=== PATIENT | female | born 1965 | race Caucasian/White ===

== ENCOUNTER 2018-01-12 00:55 | Outpatient (CLI) | payer BC ==
[~2018-01-12 00:55] MED LIST: ASPI81TA52 PO; ATOR-2 PO; CLOP75TA33 PO; ESTR0.5T28 PO; FOLI1TAB16 PO; HYDR10TA14 PO; ISOS30TA6 PO; LEVO200T46 PO; LISI2.5T49 PO; MELA3TAB PO; PHEN100C12 PO; PRO2.5T PO; SERT25TA PO
== END 2018-01-12 23:59 | disposition home or self-care (01) ==
LOC: DIABETIC 00:55
PROVIDERS: ATTEND Specialist
DX: E11.65 Type 2 diabetes mellitus with hyperglycemia (principal)
CPT/HCPCS: G0108

== ENCOUNTER 2019-04-28 08:09 | Outpatient (CLI) | payer BC ==
[2019-04-28] VITALS (7 sets, daily range): BP systolic 111–144; BP diastolic 6–70
[~2019-04-28] VITALS: Ht 165.1 cm; Wt 103.6 kg
[~2019-04-28 08:09] MED LIST changes: +HYDR-3780 PO; -HYDR10TA14 PO
[2019-04-28] MEDS ORDERED: nitroGLYCERIN 0.4mg SUBLingual tab SL PRN (09:15)
[2019-04-28] MEDS ORDERED: normal saline 500ml IV soln 500 ML IV ONE (09:15)
[2019-04-28] MEDS ORDERED: aminophylline 250mg/10ml inj. IV PRN (09:15)
[2019-04-28] MEDS ORDERED: regadenoson 0.4mg/5ml syringe IV ONE ×2 (09:15→10:28)
[2019-04-28] MEDS ORDERED: metoprolol tartrate 1mg/ml inj IV PRN (09:15)
[2019-04-28] MEDS ORDERED: aminophylline inj. 10 ML IV ONE (10:28)
== END 2019-04-28 23:59 | disposition home or self-care (01) ==
LOC: RAD 08:09 → EDSTATUS 10:00 → RAD 23:59
PROVIDERS: ATTEND Internal Medicine Cardiovascular Disease
DX: R07.9 Chest pain, unspecified (principal); I10 Essential (primary) hypertension
CPT/HCPCS: 78452; 93017; A9500; J0280; J7030

== ENCOUNTER 2020-01-12 00:21 | Emergency (ER) | payer BC ==
[~2020-01-12] VITALS: Ht 162.6 cm; Wt 110.0 kg
[~2020-01-12 00:21] MED LIST changes: -MELA3TAB PO; +MELA3TAB64 PO
[2020-01-12] MEDS ORDERED: phenytoin sod ER 100mg capsule PO ONE ×2 (01:25→02:50)
[2020-01-12] MEDS ORDERED: LORazepam 1 MG tablet PO ONE (01:25)
[2020-01-12 01:31] VITALS: BP 126/74
[2020-01-12] MEDS ORDERED: naproxen 500mg tablet PO ONE (02:00)
[2020-01-12 02:01] LABS: ALANINE AMINOTRANSFERASE 27 U/L (12-78); ALBUMIN 3.6 G/DL (3.4-5.0); ALBUMIN/GLOBULIN RATIO 1.3 (1.1-1.5); ALKALINE PHOSPHATASE 49 IU/L (46-116); ANION GAP 8 (8-16); ASPARTATE AMINO TRANSFERASE 48 U/L (10-37); BILIRUBIN,TOTAL 0.4 MG/DL (0.1-1.0); BLOOD UREA NITROGEN 14 MG/DL (7-18); BUN/CREATININE RATIO 14.4 (6.6-38.0); CALCIUM 8.8 MG/DL (8.5-10.1); CHLORIDE 108 MMOL/L (99-107); CREATININE 0.97 MG/DL (0.40-0.90); GLUCOSE 127 MG/DL (70-104); PHENYTOIN (DILANTIN) 4.9 UG/ML (10.0-20.0); POTASSIUM 3.4 MMOL/L (3.5-5.1); SODIUM 141 MMOL/L (135-145); TOTAL CARBON DIOXIDE 24.6 MMOL/L (24-32); TOTAL PROTEIN 6.4 G/DL (6.4-8.2); eGFR 60 ML/MIN
--- NOTE | 2020-01-12 02:11 | NUR ---
pt reports continued headache . dr. daniel updated and naproxyn 500 mg tab ordered.
[2020-01-12 02:21] LABS: BASOPHILS # (AUTO) 0.1 X10'3 (0-0.2); BASOPHILS % (AUTO) 1.4 % (0-1); EOSINOPHILS # (AUTO) 0.1 X10'3 (0-0.9); EOSINOPHILS % (AUTO) 3.2 % (0-6); HEMOGLOBIN 12.3 g/dl (12.0-16.0); LYMPHOCYTES # (AUTO) 1.6 X10'3 (1.1-4.8); LYMPHOCYTES % (AUTO) 46.1 % (21-51); MEAN CORPUSCULAR HEMOGLOBIN 31.4 PG (27.0-31.0); MEAN CORPUSCULAR HGB CONC 35.2 g/dL (33.0-36.5); MEAN CORPUSCULAR VOLUME 89.2 FL (78-98); MEAN PLATELET VOLUME 6.7 FL (7.4-10.4); MONOCYTES # (AUTO) 0.2 X10'3 (0-0.9); MONOCYTES % (AUTO) 5.1 % (2-12); NEUTROPHILS # (AUTO) 1.6 X10'3 (1.8-7.7); NEUTROPHILS % (AUTO) 44.2 % (42-75); PLATELET COUNT 236 X10'3 (140-440); RED BLOOD COUNT 3.92 X10'6 (4.20-5.60); RED CELL DISTRIBUTION WIDTH 13.1 % (11.5-14.5); WHITE BLOOD COUNT 3.6 X10'3 (4.5-11.0)
== END 2020-01-12 03:40 | disposition home or self-care (01) ==
LOC: ER 00:21
DX: S00.532A Contusion of oral cavity, initial encounter (principal); R56.9 Unspecified convulsions; I25.10 Atherosclerotic heart disease of native coronary artery without angina pectoris; E78.00 Pure hypercholesterolemia, unspecified; I10 Essential (primary) hypertension; I25.2 Old myocardial infarction; E11.9 Type 2 diabetes mellitus without complications; Z95.5 Presence of coronary angioplasty implant and graft; Z98.890 Other specified postprocedural states; Z90.49 Acquired absence of other specified parts of digestive tract; Z88.8 Allergy status to other drugs, medicaments and biological substances; Z79.82 Long term (current) use of aspirin; Z79.899 Other long term (current) drug therapy; X58.XXXA Exposure to other specified factors, initial encounter; Y93.89 Activity, other specified; Y92.89 Other specified places as the place of occurrence of the external cause; Y99.9 Unspecified external cause status
CPT/HCPCS: 36415; 80053; 80185; 85025; 99284

== ENCOUNTER 2020-10-30 09:07 | Emergency (ER) | payer BC ==
[~2020-10-30] VITALS: Ht 165.1 cm; Wt 109.1 kg
[~2020-10-30 09:07] MED LIST changes: -HYDR-3780 PO; +HYDR-4318 PO; +MELA3TAB39 PO; -MELA3TAB64 PO
== END 2020-10-30 09:55 | disposition home or self-care (01) ==
LOC: ER 09:08
DX: J06.9 Acute upper respiratory infection, unspecified (principal); R05 Cough; Z20.828 Contact with and (suspected) exposure to other viral communicable diseases; I25.10 Atherosclerotic heart disease of native coronary artery without angina pectoris; E78.00 Pure hypercholesterolemia, unspecified; I10 Essential (primary) hypertension; I25.2 Old myocardial infarction; E11.9 Type 2 diabetes mellitus without complications; Z86.69 Personal history of other diseases of the nervous system and sense organs; Z90.49 Acquired absence of other specified parts of digestive tract; Z98.890 Other specified postprocedural states; Z88.8 Allergy status to other drugs, medicaments and biological substances; Z79.82 Long term (current) use of aspirin; Z79.899 Other long term (current) drug therapy
CPT/HCPCS: 36415; 87635; 99283

== ENCOUNTER 2020-11-28 16:34 | Inpatient (IN) | payer BC ==
[~2020-11-28] VITALS: Ht 165.1 cm; Wt 118.2 kg
[2020-11-28 19:25] LABS: BASOPHILS % (AUTO) 0.8 % (0-1); EOSINOPHILS # (AUTO) 0.2 X10'3 (0-0.9); EOSINOPHILS % (AUTO) 3.7 % (0-6); HEMATOCRIT 33.6 % (35.0-45.0); HEMOGLOBIN 11.8 g/dl (12.0-16.0); LYMPHOCYTES # (AUTO) 3.3 X10'3 (1.1-4.8); LYMPHOCYTES % (AUTO) 56.7 % (21-51); MEAN CORPUSCULAR HEMOGLOBIN 31.8 PG (27.0-31.0); MEAN CORPUSCULAR HGB CONC 35.1 g/dL (33.0-36.5); MEAN CORPUSCULAR VOLUME 90.7 FL (78-98); MEAN PLATELET VOLUME 6.5 FL (7.4-10.4); MONOCYTES # (AUTO) 0.3 X10'3 (0-0.9); MONOCYTES % (AUTO) 5.7 % (2-12); NEUTROPHILS # (AUTO) 1.9 X10'3 (1.8-7.7); NEUTROPHILS % (AUTO) 33.1 % (42-75); PLATELET COUNT 298 X10'3 (140-440); RED BLOOD COUNT 3.71 X10'6 (4.20-5.60); RED CELL DISTRIBUTION WIDTH 14.2 % (11.5-14.5); WHITE BLOOD COUNT 5.8 X10'3 (4.5-11.0)
[2020-11-28 19:35] LABS: PARTIAL THROMBOPLASTIN TIME 27 SECONDS (22-32)
[2020-11-28 19:43] LABS: ALANINE AMINOTRANSFERASE 22 U/L (12-78); ALBUMIN 4.4 G/DL (3.4-5.0); ALBUMIN/GLOBULIN RATIO 1.3 (1.1-1.5); ALKALINE PHOSPHATASE 25 IU/L (46-116); ANION GAP 8 (8-16); ASPARTATE AMINO TRANSFERASE 57 U/L (10-37); BILIRUBIN,TOTAL 0.3 MG/DL (0.1-1.0); BLOOD UREA NITROGEN 14 MG/DL (7-18); BUN/CREATININE RATIO 8.6 (6.6-38.0); CALCIUM 8.8 MG/DL (8.5-10.1); CHLORIDE 104 MMOL/L (99-107); CREATININE 1.62 MG/DL (0.40-0.90); GLUCOSE 129 MG/DL (70-104); MAGNESIUM 1.8 MG/DL (1.5-2.4); SODIUM 142 MMOL/L (135-145); TOTAL PROTEIN 7.8 G/DL (6.4-8.2); eGFR 33 ML/MIN
[2020-11-28 19:50] LABS: POTASSIUM 2.9 MMOL/L (3.5-5.1)
[2020-11-28 19:52] LABS: PLATELET ESTIMATE NORMAL; TOTAL CELLS COUNTED 100
[2020-11-28] MEDS ORDERED: potassium Cl 10 mEq/100mL bag IV ONE ×2 (20:00→20:30)
[2020-11-28] MEDS ORDERED: normal saline 1000ML IV soln IVB ONE (20:10)
[2020-11-28] MEDS ORDERED: potassium Cl 20 mEq SR tablet PO ONE (20:10)
[2020-11-28] MEDS ORDERED: magnesium oxide 400mg tablet PO ONE (20:10)
[2020-11-28 20:21] LABS: CLARITY,URINE CLEAR (Clear); COLOR,URINE YELLOW (Yellow); GLUCOSE, URINE NEGATIVE (Neg); KETONES,URINE TRACE mg/dl (Neg); LEUKOCYTE ESTERASE ,URINE NEGATIVE (Neg); NITRITES, URINE NEGATIVE (Neg); OCCULT BLOOD,URINE NEGATIVE (Neg); PH,URINE 5.5 (4.8-8.0); PROTEIN,URINE TRACE mg/dl (Neg)
[2020-11-28 20:22] LABS: UA COLLECTION TYPE CLN CATCH MIDSTREAM
[2020-11-28] MEDS ORDERED: potassium 10mEq/100ml NS w/LIDOcaine (10mg/bag) IV ONE (20:25)
[2020-11-28 20:26] LABS: BACTERIA,URINE NONE SEEN /HPF (Neg); RBC,URINE NONE SEEN /HPF (0-2); SQUAMOUS EPITHELIAL CELL,UR FEW /LPF (FEW); WBC,URINE 0-4 /HPF (0-4)
[2020-11-28] MEDS ORDERED: magnesium hydroxide 30ml (MOM) UD suspension PO PRN (20:55)
[2020-11-28] MEDS ORDERED: potassium Cl 40MEQ/1/2NS 520ml 520 ML IV PRN ×2 (20:55)
[2020-11-28] MEDS ORDERED: mag hydrox/Alum hydrox/simeth 30ml oral suspension PO PRN (20:55)
[2020-11-28] MEDS ORDERED: acetaminophen 325mg tablet PO PRN ×2 (20:55)
[2020-11-28] MEDS ORDERED: magnesium Cl slow-release 64mg tablet PO PRN (20:55)
[2020-11-28] MEDS ORDERED: magnesium 2GM in 50ml NS 50 ML IV PRN (20:55)
[2020-11-28] MEDS ORDERED: magnesium 4gm in 100ml NS 100 ML IV PRN (20:55)
[2020-11-28] MEDS ORDERED: HYDROcodone/acetaminophen 5mg/325mg tablet PO PRN (20:55)
[2020-11-28] MEDS ORDERED: potassium Cl 20 mEq SR tablet PO PRN (20:55)
[2020-11-28] MEDS ORDERED: morphine 2 MG/ML inj. syringe IV PRN ×2 (20:55)
[2020-11-28] MEDS ORDERED: HYDROcodone/acetaminophen 10/325mg tab PO PRN (20:55)
[2020-11-28] MEDS ORDERED: ondansetron/PF 4mg/2ml inj IV PRN (20:55)
[2020-11-28] MEDS ORDERED: Melatonin 3mg tablet PO SCH (21:00)
[2020-11-28] MEDS: normal saline 1000ml 1,000 ML IV SCH (21:31)
--- NOTE | 2020-11-29 00:32 | NUR ---
PT HAS ADMISSION ORDERS. AWAITING IPA.
[2020-11-29 03:30] VITALS: BP 138/57
[2020-11-29] MEDS: normal saline 1000ml 1,000 ML IV SCH ×2 (05:35→16:55)
--- NOTE | 2020-11-29 06:26 | NUR ---
Problems reprioritized. Patient report given, questions answered & plan of care reviewed with Manuela LÓPEZ.
--- NOTE | 2020-11-29 06:52 | NUR ---
Patient in room [id number]. I have received report from Brynn LÓPEZ and had the opportunity to ask questions and assume patient care.
[2020-11-29 07:00] VITALS: BP 129/78
[2020-11-29 07:50] LABS: BASOPHILS % (AUTO) 0.6 % (0-1); EOSINOPHILS # (AUTO) 0.2 X10'3 (0-0.9); EOSINOPHILS % (AUTO) 3.7 % (0-6); HEMATOCRIT 30.2 % (35.0-45.0); HEMOGLOBIN 10.8 g/dl (12.0-16.0); LYMPHOCYTES # (AUTO) 2.9 X10'3 (1.1-4.8); MEAN CORPUSCULAR HEMOGLOBIN 32.6 PG (27.0-31.0); MEAN CORPUSCULAR HGB CONC 35.6 g/dL (33.0-36.5); MEAN CORPUSCULAR VOLUME 91.4 FL (78-98); MEAN PLATELET VOLUME 6.4 FL (7.4-10.4); MONOCYTES # (AUTO) 0.4 X10'3 (0-0.9); MONOCYTES % (AUTO) 7.5 % (2-12); NEUTROPHILS # (AUTO) 1.8 X10'3 (1.8-7.7); NEUTROPHILS % (AUTO) 34.2 % (42-75); PLATELET COUNT 239 X10'3 (140-440); RED BLOOD COUNT 3.31 X10'6 (4.20-5.60); WHITE BLOOD COUNT 5.4 X10'3 (4.5-11.0)
[2020-11-29] MEDS ORDERED: medroxyprogesterone acet. 2.5mg tablet PO SCH (08:00)
[2020-11-29] MEDS ORDERED: phenytoin sod ER 100mg capsule PO SCH (08:00)
[2020-11-29] MEDS ORDERED: hydrocortisone 10mg tablet PO SCH (08:00)
[2020-11-29] MEDS ORDERED: atorvastatin 20mg tablet PO SCH (08:00)
[2020-11-29] MEDS ORDERED: aspirin 81mg tablet.DR PO SCH (08:00)
[2020-11-29] MEDS ORDERED: levoTHYROXINE 100mcg tablet PO SCH (08:00)
[2020-11-29] MEDS ORDERED: isosorbide mononitrate 30mg tab.SR.24H PO SCH (08:00)
[2020-11-29] MEDS ORDERED: sertraline 50mg tablet PO SCH (08:00)
[2020-11-29] MEDS ORDERED: clopidogrel 75mg tablet PO SCH (08:00)
[2020-11-29] MEDS ORDERED: K and/or MAG REPLACEMENT MC SCH (08:00)
[2020-11-29] MEDS ORDERED: lisinopril 2.5mg tablet PO SCH (08:00)
[2020-11-29] MEDS ORDERED: folic acid 1mg tablet PO SCH (08:00)
[2020-11-29 08:02] LABS: ALBUMIN 3.9 G/DL (3.4-5.0); ANION GAP 9 (8-16); BLOOD UREA NITROGEN 13 MG/DL (7-18); BUN/CREATININE RATIO 9.5 (6.6-38.0); CALCIUM 8.3 MG/DL (8.5-10.1); CHLORIDE 107 MMOL/L (99-107); CREATININE 1.37 MG/DL (0.40-0.90); GLUCOSE 81 MG/DL (70-104); MAGNESIUM 1.9 MG/DL (1.5-2.4); POTASSIUM 3.3 MMOL/L (3.5-5.1); SODIUM 145 MMOL/L (135-145); TOTAL CARBON DIOXIDE 29.2 MMOL/L (24-32); eGFR 40 ML/MIN
[2020-11-29 08:43] LABS: PLATELET ESTIMATE NORMAL; TOTAL CELLS COUNTED 100
[2020-11-29] MEDS ORDERED: pneumococcal 23-VAL P-sac vacc 25 mcg/0.5ml vial IMVAC ONE (09:15)
[2020-11-29] MEDS: potassium Cl 20 mEq SR tablet PO PRN ×2 (10:41→14:44)
[2020-11-29 12:00] VITALS: BP 118/79
--- NOTE | 2020-11-29 15:59 | NUR ---
PAGER ID: [phone] MESSAGE: RE: [id number], Tanya Posey- Pt was thinking she was being d/c'd home this afternoon and wanted me to check with you. Thank you, [facility] [phone]
[2020-11-29] MEDS ORDERED: CEPH500C5 PO (17:07)
--- NOTE | 2020-11-29 18:15 | NUR ---
Pt stable and appropriate for d/c. PIV d/c'd cannula intact. Reviewed with pt all d/c instructions and meds with pt given opportunity to ask questions, answers provided and pt verbalizing understanding. Prescriptions escripted to pharmacy of choice. Pt to call PCP with any questions/concerns or s/sx of complications or return to the nearest ED. Escorted to front lobby by staff member via w/c with all personal belongings. D/c'd home in private vehicle driven by family member.
== END 2020-11-29 18:15 | disposition home or self-care (01) | DRG 684 ==
LOC: ER 16:35 → ED HOLD 20:51 → SUR 3N 11-29 03:12
PROVIDERS: ADMIT Internal Medicine; ATTEND Internal Medicine
PROC: 3E0234Z Introduction of Serum, Toxoid and Vaccine into Muscle, Percutaneous Approach (ICD-10-PCS; principal; 2020-11-29)
DX: N17.9 Acute kidney failure, unspecified (principal); E11.9 Type 2 diabetes mellitus without complications; E78.00 Pure hypercholesterolemia, unspecified; E78.5 Hyperlipidemia, unspecified; E87.6 Hypokalemia; I10 Essential (primary) hypertension; F32.9 Major depressive disorder, single episode, unspecified; I25.10 Atherosclerotic heart disease of native coronary artery without angina pectoris; I25.2 Old myocardial infarction; Z79.890 Hormone replacement therapy; Z95.1 Presence of aortocoronary bypass graft; Z79.899 Other long term (current) drug therapy; Z23 Encounter for immunization
CPT/HCPCS: 36415; 80048; 80053; 81001; 83735; 83880; 84100; 84484; 85007; 85025; 85610; 85730; 87081; 90732; 93005; 99285; G0378; J3480; J7030

== ENCOUNTER 2020-12-10 12:34 | Emergency (ER) | payer BC ==
[~2020-12-10] VITALS: Ht 165.1 cm; Wt 110.6 kg
[~2020-12-10 12:34] MED LIST changes: +CEPH500C5 PO
[2020-12-10 12:44] VITALS: BP 110/86
[2020-12-10 13:41] LABS: BASOPHILS # (AUTO) 0.1 X10'3 (0-0.2); BASOPHILS % (AUTO) 1.2 % (0-1); EOSINOPHILS # (AUTO) 0.1 X10'3 (0-0.9); EOSINOPHILS % (AUTO) 2.9 % (0-6); HEMOGLOBIN 11.5 g/dl (12.0-16.0); LYMPHOCYTES # (AUTO) 1.9 X10'3 (1.1-4.8); LYMPHOCYTES % (AUTO) 41.9 % (21-51); MEAN CORPUSCULAR HEMOGLOBIN 31.9 PG (27.0-31.0); MEAN CORPUSCULAR HGB CONC 34.7 g/dL (33.0-36.5); MEAN CORPUSCULAR VOLUME 91.9 FL (78-98); MEAN PLATELET VOLUME 6.3 FL (7.4-10.4); MONOCYTES # (AUTO) 0.3 X10'3 (0-0.9); MONOCYTES % (AUTO) 5.5 % (2-12); NEUTROPHILS # (AUTO) 2.2 X10'3 (1.8-7.7); NEUTROPHILS % (AUTO) 48.5 % (42-75); PLATELET COUNT 329 X10'3 (140-440); RED BLOOD COUNT 3.59 X10'6 (4.20-5.60); RED CELL DISTRIBUTION WIDTH 14.7 % (11.5-14.5); WHITE BLOOD COUNT 4.6 X10'3 (4.5-11.0)
[2020-12-10 13:53] LABS: ALANINE AMINOTRANSFERASE 25 U/L (12-78); ALBUMIN 4.7 G/DL (3.4-5.0); ALBUMIN/GLOBULIN RATIO 1.5 (1.1-1.5); ALKALINE PHOSPHATASE 19 IU/L (46-116); ANION GAP 3 (8-16); ASPARTATE AMINO TRANSFERASE 78 U/L (10-37); BILIRUBIN,TOTAL 0.3 MG/DL (0.1-1.0); BLOOD UREA NITROGEN 26 MG/DL (7-18); BUN/CREATININE RATIO 18.1 (6.6-38.0); CHLORIDE 100 MMOL/L (99-107); CREATININE 1.44 MG/DL (0.40-0.90); GLUCOSE 95 MG/DL (70-104); POTASSIUM 3.8 MMOL/L (3.5-5.1); SODIUM 133 MMOL/L (135-145); TOTAL CARBON DIOXIDE 30.3 MMOL/L (24-32); TOTAL PROTEIN 7.9 G/DL (6.4-8.2); eGFR 38 ML/MIN
== END 2020-12-10 15:37 | disposition home or self-care (01) ==
LOC: ER 12:35
DX: R53.1 Weakness (principal); Z20.828 Contact with and (suspected) exposure to other viral communicable diseases; R22.0 Localized swelling, mass and lump, head; I25.810 Atherosclerosis of coronary artery bypass graft(s) without angina pectoris; I25.10 Atherosclerotic heart disease of native coronary artery without angina pectoris; E78.00 Pure hypercholesterolemia, unspecified; I10 Essential (primary) hypertension; E11.9 Type 2 diabetes mellitus without complications; Z86.61 Personal history of infections of the central nervous system; Z98.890 Other specified postprocedural states; Z90.49 Acquired absence of other specified parts of digestive tract; Z98.61 Coronary angioplasty status; Z88.8 Allergy status to other drugs, medicaments and biological substances; Z79.82 Long term (current) use of aspirin; Z79.2 Long term (current) use of antibiotics; Z79.899 Other long term (current) drug therapy
CPT/HCPCS: 36415; 71045; 80053; 83880; 84484; 85025; 87635; 93005; 99285

== ENCOUNTER 2021-08-23 14:31 | Emergency (ER) | payer BC ==
[~2021-08-23] VITALS: Ht 165.1 cm; Wt 111.4 kg
[~2021-08-23 14:31] MED LIST changes: +CEPH-585 PO; -CEPH500C5 PO; -ISOS30TA6 PO; +ISOS30TA84 PO
[2021-08-23] MEDS ORDERED: normal saline 1000ML IV soln IVB ONE (16:20)
[2021-08-23] MEDS ORDERED: phenytoin sod 50mg/ml 2ml vial IV SCH (16:20)
[2021-08-23] MEDS ORDERED: phenytoin sod inj 500 MG in normal saline 100ml IV soln 90 ML IV ONE (16:35)
--- NOTE | 2021-08-23 16:49 | NUR ---
recieved patient in bed 1.
[2021-08-23 16:58] LABS: BASOPHILS % (AUTO) 0.5 % (0-1); EOSINOPHILS # (AUTO) 0.1 X10'3 (0-0.9); EOSINOPHILS % (AUTO) 1.1 % (0-6); HEMATOCRIT 35.3 % (35.0-45.0); HEMOGLOBIN 12.5 g/dl (12.0-16.0); LYMPHOCYTES # (AUTO) 2.8 X10'3 (1.1-4.8); LYMPHOCYTES % (AUTO) 43.1 % (21-51); MEAN CORPUSCULAR HEMOGLOBIN 31.5 PG (27.0-31.0); MEAN CORPUSCULAR HGB CONC 35.3 g/dL (33.0-36.5); MEAN CORPUSCULAR VOLUME 89.1 FL (78-98); MEAN PLATELET VOLUME 6.2 FL (7.4-10.4); MONOCYTES # (AUTO) 0.6 X10'3 (0-0.9); MONOCYTES % (AUTO) 8.7 % (2-12); NEUTROPHILS # (AUTO) 3.1 X10'3 (1.8-7.7); NEUTROPHILS % (AUTO) 46.6 % (42-75); PLATELET COUNT 256 X10'3 (140-440); RED BLOOD COUNT 3.96 X10'6 (4.20-5.60); RED CELL DISTRIBUTION WIDTH 13.5 % (11.5-14.5); WHITE BLOOD COUNT 6.6 X10'3 (4.5-11.0)
[2021-08-23 17:21] LABS: ALANINE AMINOTRANSFERASE 19 U/L (12-78); ALBUMIN/GLOBULIN RATIO 1.3 (1.1-1.5); ALKALINE PHOSPHATASE 48 IU/L (46-116); ANION GAP 4 (8-16); ASPARTATE AMINO TRANSFERASE 23 U/L (10-37); BILIRUBIN,TOTAL 0.3 MG/DL (0.1-1.0); BLOOD UREA NITROGEN 17 MG/DL (7-18); BUN/CREATININE RATIO 18.5 (6.6-38.0); CALCIUM 8.6 MG/DL (8.5-10.1); CHLORIDE 105 MMOL/L (99-107); CREATININE 0.92 MG/DL (0.40-0.90); GLUCOSE 84 MG/DL (70-104); POTASSIUM 3.7 MMOL/L (3.5-5.1); SODIUM 137 MMOL/L (135-145); TOTAL CARBON DIOXIDE 27.8 MMOL/L (24-32); TOTAL PROTEIN 7.2 G/DL (6.4-8.2); eGFR 64 ML/MIN
[2021-08-23 18:06] LABS: CLARITY,URINE CLEAR (Clear); COLOR,URINE YELLOW (Yellow); GLUCOSE, URINE NEGATIVE (Neg); KETONES,URINE NEGATIVE (Neg); LEUKOCYTE ESTERASE ,URINE NEGATIVE (Neg); NITRITES, URINE NEGATIVE (Neg); OCCULT BLOOD,URINE NEGATIVE (Neg); PROTEIN,URINE NEGATIVE (Neg); UA COLLECTION TYPE STRAIGHT CATH; UROBILINOGEN,URINE 0.2 E.U/dL (0.2-1.0)
[2021-08-23] MEDS ORDERED: LORazepam 2 mg/ml vial IV ONE (19:45)
[2021-08-23] MEDS ORDERED: LORazepam 1 MG tablet PO ONE (19:50)
[2021-08-23 19:51] VITALS: BP 158/80
== END 2021-08-23 19:52 | disposition home or self-care (01) ==
LOC: ER 14:32
DX: R56.9 Unspecified convulsions (principal); I25.10 Atherosclerotic heart disease of native coronary artery without angina pectoris; E78.00 Pure hypercholesterolemia, unspecified; I10 Essential (primary) hypertension; I25.2 Old myocardial infarction; E11.9 Type 2 diabetes mellitus without complications; Z86.69 Personal history of other diseases of the nervous system and sense organs; Z90.49 Acquired absence of other specified parts of digestive tract; Z98.890 Other specified postprocedural states; Z88.8 Allergy status to other drugs, medicaments and biological substances; Z79.2 Long term (current) use of antibiotics; Z79.82 Long term (current) use of aspirin; Z79.899 Other long term (current) drug therapy
CPT/HCPCS: 36415; 80053; 80185; 81003; 83605; 85025; 96365; 99284; J1165; J7030